=== PATIENT | female | born 2000 | race Caucasian/White ===

== ENCOUNTER 2020-10-04 18:52 | Emergency (ER) ==
[2020-10-04] MEDS ORDERED: HYDROcodone/Acetaminophen 10/325 mg Tablet ONE (20:42)
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
== END 2020-10-04 22:00 | disposition home or self-care (01) ==
LOC: ERS 18:52
DX: S83.91XA Sprain of unspecified site of right knee, initial encounter (principal); S63.612A Unspecified sprain of right middle finger, initial encounter; S00.83XA Contusion of other part of head, initial encounter; F17.290 Nicotine dependence, other tobacco product, uncomplicated; V89.2XXA Person injured in unspecified motor-vehicle accident, traffic, initial encounter
CPT/HCPCS: 70450; 70486; 71045; 72125

== ENCOUNTER 2020-11-27 07:40 | Outpatient (CLI) | payer OTHER | END 2020-11-27 07:41 | disposition home or self-care (01) | LOC: BICULT 07:40 | PROVIDERS: ATTEND Physician Assistant | DX: N92.1 Excessive and frequent menstruation with irregular cycle (principal); R93.89 Abnormal findings on diagnostic imaging of other specified body structures | CPT/HCPCS: 76856 ==

== ENCOUNTER 2021-03-05 09:20 | Outpatient (CLI) | payer OTHER | END 2021-03-05 09:21 | disposition home or self-care (01) | LOC: BICULT 09:20 | PROVIDERS: ATTEND Physician Assistant | DX: R94.5 Abnormal results of liver function studies (principal); R10.84 Generalized abdominal pain; K76.0 Fatty (change of) liver, not elsewhere classified | CPT/HCPCS: 76705 ==